=== PATIENT | male | born 1950 | race Caucasian/White ===

== ENCOUNTER → 2022-12-27 | Outpatient (CLI) | payer OTHER ==
[~2022-12-27] MED LIST: AEC81 PO; CLOP75TA32 PO; FINA5TAB41 PO; HYDR-2132 PO; HYDR25TA PO; IPRA4AER IH; MORP15TA9 PO; TERA10CA4 PO
[2022-12-27 08:32] LABS: INR 0.95 (0.85-1.15); PROTHROMBIN TIME 10.4 SEC (9.6-11.6)
[2022-12-27 08:34] LABS: PARTIAL THROMBOPLASTIN TIME 27.6 SEC (26.3-35.5)
== END | disposition home or self-care (01) ==
LOC: RAH 10:00
PROVIDERS: ATTEND Internal Medicine
DX: Z01.818 Encounter for other preprocedural examination (principal); R59.1 Generalized enlarged lymph nodes
CPT/HCPCS: 36415; 76882; 85610; 85730